=== PATIENT | male | born 1945 | race African-American/Black ===

== ENCOUNTER 2023-09-09 14:59 | Emergency (ER) | payer OTHER ==
[2023-09-09 16:33] VITALS: RESP 16; TEMP 98.5; BMI 22.7
[2023-09-09 18:09] LABS: BASO % 0.5 % (0-2.0); EOS % 1.1 % (0-4.5); HEMATOCRIT 40.9 % (35.4-49); HEMOGLOBIN 13.8 GM/dL (11.7-16.9); LYMPH % 21.8 % (8-40); MCH 28.9 pg (25.7-33.7); MCHC 33.7 g/dl (32.0-35.9); MEAN CELL VOLUME 85.8 fl (80-96); MEAN PLT VOLUME 7.9 fl (7.5-11.1); MONO % 11.6 % (3.8-10.2); PLATELET COUNT 212 10^3/uL (134-434); RBC 4.77 M/mm3 (4.00-5.60); RDW 14.4 % (11.9-15.9); WHITE BLOOD COUNT 4.9 K/mm3 (4.0-10.0)
[2023-09-09 18:38] LABS: INR 1.04 (0.83-1.09)
[2023-09-09 18:38] LABS: POTASSIUM 3.9 mmol/L (3.5-5.1)
[2023-09-09 18:40] LABS: ACTIVATED PTT 31.5 SECONDS (25.2-36.5)
[2023-09-09 18:59] LABS: EPI CELLS 1 /uL (0-25.1); HYALINE CASTS 4 /uL (0-3.1); URINE APPEARANCE CLEAR; URINE BACTERIA 0 /uL (0-1359); URINE BILIRUBIN NEGATIVE (NEGATIVE); URINE COLOR YELLOW; URINE GLUCOSE (UA) NEGATIVE (NEGATIVE); URINE KETONE NEGATIVE (NEGATIVE); URINE LEUK ESTERASE NEGATIVE (NEGATIVE); URINE NITRITE NEGATIVE (NEGATIVE); URINE PROTEIN 3+ (NEGATIVE); URINE RBC 3911 /uL (0-23.9); URINE UROBILINOGEN 0.2 mg/dL (0.2-1.0); URINE WBC 2 /uL (0-25.8)
[2023-09-09 23:46] VITALS: BP 108/67; PULSE 69
== END 2023-09-10 00:02 | disposition home or self-care (01) ==
LOC: JER 14:59
DX: R31.9 Hematuria, unspecified (principal)
CPT/HCPCS: 36415; 74177-TC; 80048; 81003; 85025; 85610; 85730; 86850; 86900; 86901; 99285-25; Q9967